=== PATIENT | male | born 1940 | race Caucasian/White ===

== ENCOUNTER 2020-09-22 12:21 | Inpatient (IN) | payer MEDICARE, OTHER ==
[~2020-09-22] VITALS: Ht 170.2 cm; Wt 72.1 kg
[~2020-09-22 12:21] MED LIST: AMLODIPINE PO; BYSTOLIC PO; DIOVAN PO; LORA2TAB PO; WARF1TAB2 PO
[2020-09-22] MEDS: ALBUTEROL SULFATE 2.5 MG/3 ML NEBU NEB ONE ×2 (12:45→12:59)
[2020-09-22] MEDS ORDERED: DEXAMETHASONE SOD PHOSPHATE 4 MG INJ IV ONE (12:45)
[2020-09-22] MEDS ORDERED: ALBUTEROL SULFATE 2.5 MG/3 ML NEBU ONE ×2 (13:06→13:38)
[2020-09-22] MEDS ORDERED: LIDOCAINE 2% (UROJET) 10 ML JELLY MM ONE (13:07)
[2020-09-22] MEDS ORDERED: BISA10SU61 RC (13:09)
[2020-09-22] MEDS ORDERED: [UNRECOGNIZED DRUG - CODE] PO (13:09)
[2020-09-22] MEDS ORDERED: FAMO-132 PO (13:09)
[2020-09-22] MEDS ORDERED: NA P133E RC (13:09)
[2020-09-22] MEDS ORDERED: ONDA4TAB11 PO (13:09)
[2020-09-22] MEDS ORDERED: MULT-365 PO (13:09)
[2020-09-22] MEDS ORDERED: VALP250S3 PO (13:09)
[2020-09-22] MEDS ORDERED: METO-357 PO (13:09)
[2020-09-22] MEDS ORDERED: VITAMIN BCOMPLEX PO (13:09)
[2020-09-22] MEDS ORDERED: AMLO-212 PO (13:09)
[2020-09-22] MEDS ORDERED: DOCU-141 PO (13:09)
[2020-09-22] MEDS ORDERED: SENN-261 PO (13:09)
[2020-09-22] MEDS ORDERED: RIVA10TA PO (13:09)
[2020-09-22] MEDS ORDERED: AMIN887L7 PO (13:09)
[2020-09-22] MEDS ORDERED: MAGN400O6 PO (13:09)
[2020-09-22] MEDS ORDERED: MELA5TAB PO (13:09)
[2020-09-22] MEDS ORDERED: HALO2TAB PO (13:09)
[2020-09-22 13:10] LABS: BASOPHILS # (AUTO) 0.2 K/uL (0.0-8.0); BASOPHILS % (AUTO) 2.8 % (0.0-2.0); EOSINOPHILS # (AUTO) 0.1 K/uL (0.0-0.7); EOSINOPHILS % (AUTO) 1.5 % (0.0-7.0); HEMATOCRIT 37.3 % (36.7-47.1); HEMOGLOBIN 11.7 g/dL (12.5-16.3); LYMPHOCYTES # (AUTO) 1.8 K/uL (20.0-40.0); LYMPHOCYTES % (AUTO) 23.8 % (20.5-51.5); MEAN CORPUSCULAR HEMOGLOBIN 29.6 uug (23.8-33.4); MEAN CORPUSCULAR HGB CONC 32 g/dL (32.5-36.3); MONOCYTES # (AUTO) 0.4 K/uL (2.0-10.0); MONOCYTES % (AUTO) 5.3 % (0.0-11.0); NEUTROPHILS % (AUTO) 66.6 % (38.5-71.5); PLATELET COUNT (AUTO) 204 K/uL (152-348); RED BLOOD CELL COUNT(AUTO) 3.97 MIL/uL (4.06-5.63); WHITE BLOOD COUNT (AUTO) 7.4 K/uL (3.6-10.2)
[2020-09-22 13:15] LABS: *BILIRUBIN,URIN NEGATIVE (NEGATIVE); *CLARITY,URINE CLEAR (CLEAR); *COLOR,URINE YELLOW (YELLOW); *KETONES,URINE NEGATIVE (NEGATIVE); *UROBILINOGEN,URINE 0.2 E.U./dl (NORMAL); LEUKOCYTE ESTERASE ,URINE NEGATIVE (NEGATIVE); NITRITE, URINE NEGATIVE (NEGATIVE); UGLUCOSE NEGATIVE (NEGATIVE)
[2020-09-22] MEDS ORDERED: DEXAMETHASONE SOD PHOSPHATE 10 MG INJ ONE (13:18)
[2020-09-22 13:21] LABS: *BLOOD, URINE TRACE (NEGATIVE)
[2020-09-22 13:37] LABS: CREATININE 1.1 mg/dL (0.6-1.3); POTASSIUM 4.1 mmol/L (3.5-5.1)
[2020-09-22 13:43] LABS: BILIRUBIN,DIRECT 0.2 mg/dL (0.0-0.2); BILIRUBIN,TOTAL 0.6 mg/dL (0.2-1.0); TOTAL PROTEIN, SERUM 7.1 g/dL (6.4-8.2)
[2020-09-22] MEDS ORDERED: ALBUTEROL SULFATE 8 GM HFA.AER.AD IH PRN ×2 (13:45→16:15)
--- NOTE | 2020-09-22 14:26 | NUR ---
BRE ANDRADE NP ADMITTED THE PT TO TELE FOR PNEUMONIA
[2020-09-22] MEDS ORDERED: DOXYCYCLINE HYCLATE IV 100 MG in IV DEXTROSE 5% 100 ML IV SCH (14:30)
[2020-09-22] MEDS ORDERED: CEFTRIAXONE 1 G in IV DEXTROSE 5% 50 ML IV SCH (14:30)
[2020-09-22] MEDS ORDERED: CEFTRIAXONE /D5W 50ML IVPB **ER PYXIS IV ONE (14:57)
[2020-09-22] MEDS ORDERED: ACETAMINOPHEN 650 MG SUPP.RECT RC PRN (16:15)
[2020-09-22] MEDS ORDERED: ACETAMINOPHEN 325 MG TABLET PO PRN (16:15)
[2020-09-22] MEDS ORDERED: ONDANSETRON 4 MG/2 ML VIAL IV PRN (16:15)
[2020-09-22] MEDS: AZITHROMYCIN IV 500 MG in IV DEXTROSE 5% 250 ML IV SCH (16:31)
[2020-09-22] MEDS ORDERED: AZITHROMYCIN 500MG/ D5W 250ML IVPB **ER PYXIS ONLY IV ONE (16:33)
[2020-09-22 16:35] LABS: BACTERIA,URINE NONE SEEN /HPF (NONE SEEN); SQUAMOUS EPITHELIAL CELL,UR FEW /HPF (NONE SEEN); WBC,URINE 0-3 /HPF (0-3)
[2020-09-22] MEDS ORDERED: DOXYCYCLINE HYCLATE 100 MG INJ IV ONE (16:38)
--- NOTE | 2020-09-22 16:39 | NUR ---
pt resting, no sign of distress.
[2020-09-22] MEDS ORDERED: DOCUSATE SODIUM 100 MG CAPSULE PO SCH (17:00)
[2020-09-22] MEDS ORDERED: IRON PO SCH (17:00)
[2020-09-22] MEDS ORDERED: VALPROIC ACID 250 MG/5 ML LIQUID UDC PO SCH (17:00)
[2020-09-22] MEDS ORDERED: [UNRECOGNIZED DRUG - OTHER] PO SCH (17:00)
--- NOTE | 2020-09-22 17:13 | NUR ---
pt non-verbal. unable to po challenge him. Shantal Lu,coordinate measuring machine programmer at bedside, hold the po meds until swallow eval.
--- NOTE | 2020-09-22 17:30 | NUR ---
PHARMACY NOTE" VIBRAMYCIN STARTED AT 1730, RAC.
[2020-09-22] MEDS ORDERED: RIVAROXABAN 10 MG TABLET PO SCH (18:00)
[2020-09-22] MEDS ORDERED: MELATONIN 3 MG TABLET PO SCH (18:00)
--- NOTE | 2020-09-22 18:20 | NUR ---
pt talking, asking for his to come inside. tried to orient the pt.
[2020-09-22] MEDS ORDERED: METOPROLOL TARTRATE 5 MG/5 ML VIAL IVP ONE ×2 (18:30→18:43)
--- NOTE | 2020-09-22 18:30 | NUR ---
PHARMACY NOTE VIBRAMYCIN COMPLETED AT 1830
--- NOTE | 2020-09-22 18:30 | NUR ---
pt hr increased ti 120, md simeon notified. orders carried
--- NOTE | 2020-09-22 19:00 | NUR ---
Patient not alert and orientated, unable to tolerate PO administration of MELATONIN and XARELTO. Addendum: 09/22/202030 by TARA Amendment undlos in EDM - 09/22/202030 by TARA MD eid AWARE
--- NOTE | 2020-09-22 19:30 | NUR ---
Patient is resting in bed, appears lethargic.
[2020-09-22] MEDS ORDERED: SENNOSIDES 1 TABLET PO SCH (21:00)
--- NOTE | 2020-09-22 21:32 | NUR ---
SENOKOT UNABLE TO BE ADMINISTERED D/T patient unable to tolerate oral intake of medication.
--- NOTE | 2020-09-23 00:19 | NUR ---
Clemente marks in [facility] - 09/23/20 at 0020 by TARA [facility] called in regards to patient's inability to tolerate PO medications. Pending callback from Dr. MCDONOUGH
--- NOTE | 2020-09-23 00:20 | NUR ---
[facility] called, DR. LUU head golf professional paged. Pending call back for further instructions on patient's inability tolerate PO meds and current heart rate.
--- NOTE | 2020-09-23 00:30 | NUR ---
patient is resting in bed with eyes closed, no signs of distress.
--- NOTE | 2020-09-23 00:33 | NUR ---
DR. LUU followed up on patient. Stated he will be placing new orders for the patient's current status.
--- NOTE | 2020-09-23 02:30 | NUR ---
Patient is resting in bed, seems confused stating "I want one hour" attempted to reorient patient.
--- NOTE | 2020-09-23 02:30 | NUR ---
Clemente marks in [facility] - 09/23/20 at 0303 by TARA Patient is resting in bed, seems confused.
--- NOTE | 2020-09-23 03:45 | NUR ---
Pending bed assignment for patient.
--- NOTE | 2020-09-23 04:58 | NUR ---
Patient is resting in bed, no signs of distress noted currently.
[2020-09-23] MEDS ORDERED: VALPROATE SODIUM IV 500 MG in IV DEXTROSE 5% 100 ML IV SCH ×2 (06:00→14:00)
[2020-09-23 08:01] LABS: BASOPHILS % (AUTO) 0.2 % (0.0-2.0); HEMOGLOBIN 11.2 g/dL (12.5-16.3); LYMPHOCYTES # (AUTO) 1.3 K/uL (20.0-40.0); LYMPHOCYTES % (AUTO) 17.7 % (20.5-51.5); MEAN CORPUSCULAR HEMOGLOBIN 30.4 uug (23.8-33.4); MEAN CORPUSCULAR HGB CONC 33 g/dL (32.5-36.3); MEAN CORPUSCULAR VOLUME 92.4 fL (73.0-96.2); MONOCYTES # (AUTO) 0.6 K/uL (2.0-10.0); MONOCYTES % (AUTO) 8.5 % (0.0-11.0); NEUTROPHILS # (AUTO) 5.6 K/uL (1.8-8.9); NEUTROPHILS % (AUTO) 73.6 % (38.5-71.5); PLATELET COUNT (AUTO) 201 K/uL (152-348); RED BLOOD CELL COUNT(AUTO) 3.68 MIL/uL (4.06-5.63); WHITE BLOOD COUNT (AUTO) 7.6 K/uL (3.6-10.2)
[2020-09-23] MEDS: IV D5/ 0.9% NACL 1,000 ML IV PRN (08:07)
[2020-09-23] MEDS ORDERED: ENOXAPARIN SODIUM 80 MG/0.8 ML DISP.SYRIN SQ SCH (09:00)
[2020-09-23] MEDS ORDERED: AMLODIPINE 5 MG TABLET PO SCH (09:00)
[2020-09-23] MEDS ORDERED: FAMOTIDINE 20 MG TABLET PO SCH (09:00)
[2020-09-23] MEDS ORDERED: MULTIVITAMINS,THERAPEUTIC TABLET PO SCH (09:00)
[2020-09-23] MEDS ORDERED: BYSTOLIC PO SCH (09:00)
[2020-09-23] MEDS ORDERED: METOPROLOL SUCCINATE XL 50 MG TAB.SR.24H PO SCH (09:00)
[2020-09-23] MEDS: DEXAMETHASONE SOD PHOSPHATE 4 MG INJ IV SCH (09:05)
[2020-09-23] MEDS ORDERED: DEXAMETHASONE SOD PHOSPHATE 10 MG INJ ONE (09:06)
--- NOTE | 2020-09-23 09:15 | NUR ---
Dr Cobb, book binder at the bedside. Pt able to drink small amount of water. Dr Cobb stated to not give Lovenox, med will be changed by him.
--- NOTE | 2020-09-23 09:18 | NUR ---
Pt's HR increases as soon as pt has any activity(even minimal, drinking or sitting up in bed), Dr Bansal is aware.
[2020-09-23] MEDS ORDERED: ENOXAPARIN SODIUM 80 MG/0.8 ML DISP.SYRIN SQ ONE (09:19)
[2020-09-23] MEDS ORDERED: METOPROLOL SUCCINATE XL 50 MG TAB.SR.24H PO ONE ×2 (10:30→23:37)
[2020-09-23] MEDS: METOPROLOL SUCCINATE XL 50 MG TAB.SR.24H PO SCH (10:31)
[2020-09-23 11:43] LABS: BILIRUBIN,TOTAL 0.5 mg/dL (0.2-1.0); CREATININE 1.1 mg/dL (0.6-1.3); POTASSIUM 4.2 mmol/L (3.5-5.1); TOTAL PROTEIN, SERUM 6.9 g/dL (6.4-8.2)
[2020-09-23] MEDS ORDERED: ACETAMINOPHEN 325 MG TABLET ONE (11:46)
[2020-09-23] MEDS ORDERED: CEFTRIAXONE /D5W 50ML IVPB **ER PYXIS IV ONE (14:20)
[2020-09-23] MEDS: VALPROIC ACID 250 MG/5 ML LIQUID UDC PO SCH ×2 (14:24→23:52)
[2020-09-23] MEDS: CEFTRIAXONE 1 G in IV DEXTROSE 5% 50 ML IV SCH (14:36)
--- NOTE | 2020-09-23 15:08 | NUR ---
Patient is resting comfortably in bed with eyes closed, NAD noted.
[2020-09-23] MEDS: AZITHROMYCIN IV 500 MG in IV DEXTROSE 5% 250 ML IV SCH (16:54)
[2020-09-23] MEDS ORDERED: AZITHROMYCIN 500MG/ D5W 250ML IVPB **ER PYXIS ONLY IV ONE (16:56)
--- NOTE | 2020-09-23 17:04 | NUR ---
PT taken off 02, No SOB noted. Pt 02 sat remaines at 99%-100%.
[2020-09-23] MEDS: RIVAROXABAN 10 MG TABLET PO SCH (18:04)
--- NOTE | 2020-09-23 21:50 | NUR ---
Patient is Afib with HR 120 to 135. No distress noted. EKG done with result A Fib RVR with HR 132. Called Dr Domingo financial services education consultant animal surgeon.
--- NOTE | 2020-09-23 22:37 | NUR ---
DR Oropeza cardiology called back. Informed him of EKG and monitor reading of A FIB 120-130's. Recieved order to give Metoprolol ivp 5mg and metoprolol succinate 50mg both x1 order.
[2020-09-23] MEDS ORDERED: METOPROLOL TARTRATE 5 MG/5 ML VIAL IVP STA (22:41)
[2020-09-23] MEDS ORDERED: METOPROLOL SUCCINATE XL 50 MG TAB.SR.24H PO STA (22:41)
[2020-09-23] MEDS ORDERED: METOPROLOL TARTRATE 5 MG/5 ML VIAL IVP ONE (23:37)
[2020-09-24] MEDS: VALPROIC ACID 250 MG/5 ML LIQUID UDC PO SCH ×3 (06:26→23:52)
[2020-09-24] MEDS: IV D5/ 0.9% NACL 1,000 ML IV PRN (06:34)
--- NOTE | 2020-09-24 07:10 | NUR ---
Recieved pt from [facility]. Pt in [facility]. Noted in bilateral soft wrist restraints d/t attempting to pull out lines and monitor. Noted good circulation, and no skin injury. Pt in no acute distress. Awaiting admission into hospital. Addendum: 09/24/20 at 1043 by ELEIVA SOFT RESTRAINTS STARTED BY PREVIOUS SHIFT. NO ORDER NOTED. RESTRAINTS REMOVED.
--- NOTE | 2020-09-24 08:00 | NUR ---
resting in bed, explained plan of care- verbalized understanding, right leg with dsg and splint elevated on pillows, toes warm to touch, able to wiggle them well, comfortable at this time, safety measures in place, call light within reach
[2020-09-24] MEDS ORDERED: DEXAMETHASONE SOD PHOSPHATE 4 MG INJ ONE (09:41)
[2020-09-24] MEDS ORDERED: METOPROLOL SUCCINATE XL 50 MG TAB.SR.24H PO ONE (09:42)
[2020-09-24] MEDS: METOPROLOL SUCCINATE XL 50 MG TAB.SR.24H PO SCH ×2 (09:45→21:05)
[2020-09-24] MEDS: DEXAMETHASONE SOD PHOSPHATE 4 MG INJ IV SCH (09:45)
--- NOTE | 2020-09-24 10:11 | NUR ---
Attempted to give report to Tele, per Yazmin dip unit operator that there is no nurse available for report and they will call back. MAGO Akhtar made aware.
--- NOTE | 2020-09-24 10:25 | NUR ---
SBAR report given to [facility]
--- NOTE | 2020-09-24 10:45 | NUR ---
pt transferred to telemetry via gurny by RN. No incident noted during transfer.
[2020-09-24] MEDS: CEFTRIAXONE 1 G in IV DEXTROSE 5% 50 ML IV SCH (15:40)
[2020-09-24 16:14] VITALS: BP 116/96
[2020-09-24] MEDS: AZITHROMYCIN IV 500 MG in IV DEXTROSE 5% 250 ML IV SCH (16:53)
[2020-09-24] MEDS: RIVAROXABAN 10 MG TABLET PO SCH (18:12)
--- NOTE | 2020-09-24 18:42 | NUR ---
resting , no distress noted, was medicated for pain with norco as ordered, all needs attended and met, call light within reach
--- NOTE | 2020-09-24 19:30 | NUR ---
Received patient lying in bed. Awake but confused and disoriented. Slightly anxious. In no acute distress. No signs or symptoms of pain or SOB noted. Sporadic non-productive cough noted. A. fib controlled on tele at 85/min. IV site on right FA intact and patent. IVF infusing. Safety measure initiated and call alvarado within reached. Continue to monitor.
--- NOTE | 2020-09-24 20:10 | NUR ---
Informed SCRAP IRON CUTTER Zena of patient psychiatric Hx and periods of anxiety/restless with order to give patient Seroquel 12.5mg PO x1. Order read back, verified and will carry out.
[2020-09-24 20:15] VITALS: BP 126/77
[2020-09-24] MEDS ORDERED: QUETIAPINE FUMARATE 25 MG TABLET PO ONE (21:00)
[2020-09-25 00:06] VITALS: BP 135/70
[2020-09-25] MEDS: IV D5/ 0.9% NACL 1,000 ML IV PRN ×2 (01:52→17:36)
[2020-09-25 04:18] VITALS: BP 132/72
[2020-09-25] MEDS: VALPROIC ACID 250 MG/5 ML LIQUID UDC PO SCH ×3 (06:00→22:29)
--- NOTE | 2020-09-25 06:27 | NUR ---
Pt confused and disoriented. In no acute distress. IVF infusing. A. fib controlled on tele at 93/min. Maldonado catheter intact and draining via gravity. Aspiration precaution observed. Needs assessed and attended to. Safety measure maintained and call alvarado within reached.
--- NOTE | 2020-09-25 06:52 | NUR ---
Tried to give valproic acid but pt spits it out.
--- NOTE | 2020-09-25 08:00 | NUR ---
awake but confused, speaks farsi, no distress noted, safety measures maintained, aspiration precautions observed
[2020-09-25 08:11] LABS: BASOPHILS % (AUTO) 0.5 % (0.0-2.0); HEMOGLOBIN 10.8 g/dL (12.5-16.3); LYMPHOCYTES # (AUTO) 1.7 K/uL (20.0-40.0); LYMPHOCYTES % (AUTO) 17.8 % (20.5-51.5); MEAN CORPUSCULAR HEMOGLOBIN 30.2 uug (23.8-33.4); MEAN CORPUSCULAR HGB CONC 33 g/dL (32.5-36.3); MEAN CORPUSCULAR VOLUME 92.1 fL (73.0-96.2); MONOCYTES # (AUTO) 0.9 K/uL (2.0-10.0); NEUTROPHILS # (AUTO) 6.6 K/uL (1.8-8.9); NEUTROPHILS % (AUTO) 71.7 % (38.5-71.5); PLATELET COUNT (AUTO) 204 K/uL (152-348); RED BLOOD CELL COUNT(AUTO) 3.59 MIL/uL (4.06-5.63); WHITE BLOOD COUNT (AUTO) 9.3 K/uL (3.6-10.2)
[2020-09-25] MEDS: DEXAMETHASONE SOD PHOSPHATE 4 MG INJ IV SCH (08:41)
[2020-09-25] MEDS: METOPROLOL SUCCINATE XL 50 MG TAB.SR.24H PO SCH ×2 (08:48→21:00)
[2020-09-25] MEDS ORDERED: QUETIAPINE FUMARATE 25 MG TABLET PO SCH (09:00)
--- NOTE | 2020-09-25 10:47 | NUR ---
WOUND CARE CONSULT: PT PRESENTS WITH LOWER LEG DRY ABRASIONS AND SACRAL STAGE 4 ULCER, PRESENT ON ADMISSION. RECOMMEND SURGICAL CONSULT. DR LAURA NOTIFIED OF CONSULT REQUEST. RECOMMENDATIONS MADE FOR SKIN PROTECTION. DISCUSSED WITH NURSING STAFF. IN AGREEMENT WITH PLAN OF CARE. Addendum: 09/25/20 at 1049 by SERA SANCHEZ RN Amended: Links added.
[2020-09-25] MEDS ORDERED: LORAZEPAM 1 MG TABLET PO PRN (11:15)
[2020-09-25 11:46] VITALS: BP 140/88
[2020-09-25] MEDS: QUETIAPINE FUMARATE 25 MG TABLET PO SCH ×3 (13:37→20:20)
[2020-09-25] MEDS: CEFTRIAXONE 1 G in IV DEXTROSE 5% 50 ML IV SCH (15:37)
[2020-09-25 16:30] VITALS: BP 139/75
[2020-09-25] MEDS: AZITHROMYCIN IV 500 MG in IV DEXTROSE 5% 250 ML IV SCH (17:01)
[2020-09-25] MEDS: RIVAROXABAN 10 MG TABLET PO SCH (17:35)
--- NOTE | 2020-09-25 18:39 | NUR ---
resting in bed, no distress noted, seen by Dr Jeffers this shift, repositioned q 2h with pillows for support, heels off loaded , needs attended and met, safety measures maintained
--- NOTE | 2020-09-25 19:30 | NUR ---
Received patient lying in bed.Asleep but arouse to verbal and tactile stimuli. Remains confused and disoriented. In no acute distress. No signs or symptoms of pain or SOB noted. A. fib on tele at between 100-140's/min. non-sustaining. IV site on right FA intact and patent. IVF infusing. Maldonado catheter intact and draining via gravity. With clear yellow urine output on drainage bag. Hand mittens to both hands. Check for circulation. Safety measure initiated. Continue to monitor.
[2020-09-25 20:00] VITALS: BP 107/55
[2020-09-26] VITALS: BP 128/84
[2020-09-26 04:13] VITALS: BP 120/82
[2020-09-26] MEDS: VALPROIC ACID 250 MG/5 ML LIQUID UDC PO SCH (05:54)
--- NOTE | 2020-09-26 06:18 | NUR ---
No significant changes noted last night. Had 1 episode of anxiety/restless. Lorazepam 1mg po given and effective. Hand mittens remains in place. IVF infusing. Maldonado catheter intact and draining well. A. fib controlled on tele at 76/min. Turn and reposition for comfort. Safety measure maintained.
[2020-09-26 07:09] LABS: BASOPHILS # (AUTO) 0.1 K/uL (0.0-8.0); BASOPHILS % (AUTO) 1.5 % (0.0-2.0); HEMATOCRIT 30.8 % (36.7-47.1); HEMOGLOBIN 10.2 g/dL (12.5-16.3); LYMPHOCYTES # (AUTO) 1.8 K/uL (20.0-40.0); LYMPHOCYTES % (AUTO) 24.9 % (20.5-51.5); MEAN CORPUSCULAR HEMOGLOBIN 30.5 uug (23.8-33.4); MEAN CORPUSCULAR HGB CONC 33 g/dL (32.5-36.3); MONOCYTES # (AUTO) 0.6 K/uL (2.0-10.0); MONOCYTES % (AUTO) 8.2 % (0.0-11.0); NEUTROPHILS # (AUTO) 4.7 K/uL (1.8-8.9); NEUTROPHILS % (AUTO) 65.4 % (38.5-71.5); PLATELET COUNT (AUTO) 177 K/uL (152-348); RED BLOOD CELL COUNT(AUTO) 3.34 MIL/uL (4.06-5.63); WHITE BLOOD COUNT (AUTO) 7.1 K/uL (3.6-10.2)
--- NOTE | 2020-09-26 07:10 | NUR ---
Received patient lying in bed.Asleep but arouse to verbal and tactile stimuli. Remains confused and disoriented. In no acute distress. No signs or symptoms of pain or SOB noted. A. fib on tele IV site on right FA intact and patent. IVF infusing. Maldonado catheter intact and draining . With clear yellow urine output Safety measure initiated. Continue to monitor.
[2020-09-26 07:35] LABS: BILIRUBIN,TOTAL 0.2 mg/dL (0.2-1.0); CREATININE 0.9 mg/dL (0.6-1.3); POTASSIUM 3.9 mmol/L (3.5-5.1); TOTAL PROTEIN, SERUM 5.7 g/dL (6.4-8.2)
[2020-09-26] MEDS: QUETIAPINE FUMARATE 25 MG TABLET PO SCH ×2 (08:01→12:17)
[2020-09-26] MEDS: METOPROLOL SUCCINATE XL 50 MG TAB.SR.24H PO SCH (08:02)
[2020-09-26 08:04] VITALS: BP 167/98
[2020-09-26 08:22] VITALS: BP 167/98
[2020-09-26] MEDS: DEXAMETHASONE SOD PHOSPHATE 4 MG INJ IV SCH (08:27)
[2020-09-26] MEDS: IV D5/ 0.9% NACL 1,000 ML IV PRN (10:02)
[2020-09-26] MEDS ORDERED: VALPROIC ACID 250 MG CAPSULE PO SCH (12:13)
[2020-09-26 12:19] VITALS: BP 118/86
[2020-09-26] MEDS: CEFTRIAXONE 1 G in IV DEXTROSE 5% 50 ML IV SCH (14:27)
[2020-09-26] MEDS: AZITHROMYCIN IV 500 MG in IV DEXTROSE 5% 250 ML IV SCH (15:37)
[2020-09-26] MEDS ORDERED: NEUTRA PHOS PACKET PO ONE (15:45)
[2020-09-26 16:02] VITALS: BP 105/64
--- NOTE | 2020-09-26 17:28 | NUR ---
DC ORDERS RECEIVED NOTED AND CARRIED OUT,DC HEPLOCK PER MD ORDERS,RN REPORT GIVEN TO THE [facility],PT LEFT THE FACILITY VIA AMBULANCES IN STABLE CONDITION
== END 2020-09-26 17:29 | DRG 193 ==
LOC: ER 12:33 → TRANSITION 16:06 → MED 09-24 10:26 → TELE 09-24 11:16
PROVIDERS: ADMIT Nurse Practitioner Acute Care; ATTEND Nurse Practitioner Acute Care
DX: J15.9 Unspecified bacterial pneumonia (principal); J96.01 Acute respiratory failure with hypoxia; G93.41 Metabolic encephalopathy; E43 Unspecified severe protein-calorie malnutrition; N17.0 Acute kidney failure with tubular necrosis; L89.154 Pressure ulcer of sacral region, stage 4; I48.20 Chronic atrial fibrillation, unspecified; F03.91 Unspecified dementia, unspecified severity, with behavioral disturbance; D64.9 Anemia, unspecified; E88.09 Other disorders of plasma-protein metabolism, not elsewhere classified; K21.9 Gastro-esophageal reflux disease without esophagitis; Z79.01 Long term (current) use of anticoagulants; Z20.822 Contact with and (suspected) exposure to COVID-19; Z68.24 Body mass index [BMI] 24.0-24.9, adult; F20.9 Schizophrenia, unspecified; S81.802A Unspecified open wound, left lower leg, initial encounter; S81.801A Unspecified open wound, right lower leg, initial encounter; W19.XXXA Unspecified fall, initial encounter; Y93.9 Activity, unspecified; Y92.129 Unspecified place in nursing home as the place of occurrence of the external cause; I10 Essential (primary) hypertension
CPT/HCPCS: 36415; 51702; 70030-TC; 70450; 71045; 80164; 83605; 83615; 83690; 83735; 83970; 84100; 84155; 84165; 85025; 85730; 86140; 87040; 87086; 93005; 93307; A4663; C1758; G0378; J0456; J0696; J1100; J1650; J3490; J3535; J7042; J7060; U0003